=== PATIENT | male | born 1945 | race Caucasian/White ===

== ENCOUNTER 2019-06-23 10:13 | Inpatient (IN) | payer OTHER ==
[~2019-06-23] VITALS: Ht 177.8 cm; Wt 83.2 kg
[2019-06-23] MEDS ORDERED: ondansetron/PF 4mg/2ml inj IV ONE (10:40)
[2019-06-23] MEDS ORDERED: piperacillin/tazo 3.375gm/50ml 50 ML IV ONE (10:40)
[2019-06-23] MEDS ORDERED: morphine 4 MG/ML inj SYRINge IV PRN (10:40)
[2019-06-23] MEDS ORDERED: normal saline 1000ML IV soln IVB ONE (10:40)
[2019-06-23 11:15] LABS: BASOPHILS % (AUTO) 0.2 % (0-1); EOSINOPHILS # (AUTO) 0.2 X10'3 (0-0.9); EOSINOPHILS % (AUTO) 2.5 % (0-6); HEMATOCRIT 46.3 % (42.0-52.0); HEMOGLOBIN 16.3 g/dl (14.0-17.9); LYMPHOCYTES # (AUTO) 1.2 X10'3 (1.1-4.8); LYMPHOCYTES % (AUTO) 14.4 % (21-51); MEAN CORPUSCULAR HEMOGLOBIN 33.6 PG (27.0-31.0); MEAN CORPUSCULAR HGB CONC 35.2 g/dL (33.0-36.5); MEAN CORPUSCULAR VOLUME 95.6 FL (78-98); MEAN PLATELET VOLUME 7.4 FL (7.4-10.4); MONOCYTES # (AUTO) 0.6 X10'3 (0-0.9); MONOCYTES % (AUTO) 6.6 % (2-12); NEUTROPHILS # (AUTO) 6.6 X10'3 (1.8-7.7); NEUTROPHILS % (AUTO) 76.3 % (42-75); PLATELET COUNT 432 X10'3 (140-440); RED BLOOD COUNT 4.85 X10'6 (4.70-6.10); RED CELL DISTRIBUTION WIDTH 13.1 % (11.5-14.5); WHITE BLOOD COUNT 8.6 X10'3 (4.5-11.0)
[2019-06-23 11:22] LABS: ALANINE AMINOTRANSFERASE 36 U/L (12-78); ALBUMIN 3.2 G/DL (3.4-5.0); ALBUMIN/GLOBULIN RATIO 0.6 (1.1-1.5); ALKALINE PHOSPHATASE 113 IU/L (46-116); ANION GAP 12 (8-16); ASPARTATE AMINO TRANSFERASE 22 U/L (10-37); BILIRUBIN,TOTAL 0.4 MG/DL (0.1-1.0); BLOOD UREA NITROGEN 8 MG/DL (7-18); BUN/CREATININE RATIO 7.8 (5.4-32.0); CALCIUM 8.7 MG/DL (8.5-10.1); CHLORIDE 104 MMOL/L (99-107); CREATININE 1.03 MG/DL (0.60-1.10); GLUCOSE 156 MG/DL (70-104); LIPASE 118 U/L (73-393); SODIUM 141 MMOL/L (135-145); TOTAL PROTEIN 8.2 G/DL (6.4-8.2); eGFR 71 ML/MIN
[2019-06-23 11:23] LABS: POTASSIUM 3.9 MMOL/L (3.5-5.1)
[2019-06-23 11:26] LABS: PARTIAL THROMBOPLASTIN TIME 54 SECONDS (22-32)
--- NOTE | 2019-06-23 11:40 | NUR ---
PT REPORTS CURRENTLY NOT HAVING ANY PAIN.
[2019-06-23] MEDS ORDERED: morphine 2 MG/ML inj. syringe IV PRN ×2 (11:50)
[2019-06-23] MEDS ORDERED: ondansetron/PF 4mg/2ml inj IV PRN (11:50)
[2019-06-23] MEDS ORDERED: magnesium 4gm in 100ml NS 100 ML IV PRN (11:50)
[2019-06-23] MEDS ORDERED: acetaminophen 325mg tablet PO PRN (11:50)
[2019-06-23] MEDS ORDERED: potassium Cl 20 mEq SR tablet PO PRN ×2 (11:50)
[2019-06-23] MEDS ORDERED: potassium CL 10mEq/100ml bag 100 ML IV PRN ×2 (11:50)
[2019-06-23] MEDS ORDERED: magnesium 2GM in 50ml NS 50 ML IV PRN (11:50)
[2019-06-23] MEDS ORDERED: mag hydrox/Alum hydrox/simeth 30ml oral suspension PO PRN (11:50)
[2019-06-23] MEDS ORDERED: LISI-642 PO (12:14)
[2019-06-23] MEDS ORDERED: SIMV-45 PO (12:17)
[2019-06-23] MEDS ORDERED: CHOL10002 PO (12:20)
[2019-06-23] MEDS ORDERED: COU5T PO (12:20)
[2019-06-23 12:56] VITALS: BP 142/74
[2019-06-23] MEDS ORDERED: phytonadione inj. 10 MG in normal saline 100ml IV soln 99 ML IV ONE (13:00)
[2019-06-23 13:13] VITALS: BP 149/79
[2019-06-23] MEDS ORDERED: fentaNYL/PF 50MCG/1 ML 2ML syringe IV PRN (13:30)
[2019-06-23] MEDS ORDERED: midazolam 2 mg/2 ml injection IV PRN (13:30)
[2019-06-23] MEDS ORDERED: LIDOcaine 1%/PF 5ML 10 MG/ML VIAL SQ ONE (13:30)
[2019-06-23 13:41] VITALS: BP 147/70
[2019-06-23] MEDS ORDERED: fentaNYL/PF 50MCG/1 ML 2ML syringe ONE (13:42)
[2019-06-23] MEDS ORDERED: midazolam 2 mg/2 ml injection ONE (13:42)
--- NOTE | 2019-06-23 13:51 | NUR ---
US AT BEDSIDE FOR KIDNEY US
[2019-06-23] MEDS: normal saline 1000ml 1,000 ML IV SCH ×2 (16:02→23:35)
[2019-06-23] MEDS: piperacillin/tazo 3.375gm/50ml 50 ML IV SCH ×2 (16:16→23:38)
--- NOTE | 2019-06-23 16:25 | NUR ---
SPOKE WITH IR NURSE RE NEW INR 2.4 WHICH IS IMPROVED FROM 6.1 MD WILL PREFORM PROCEDURE TOMORROW MORNING PT IS NOT TO HAVE WARFARIN TONIGHT
--- NOTE | 2019-06-23 16:37 | NUR ---
promotional table spacer PAGER ID: [phone] MESSAGE: sarahy AMARAL IN ED BED 8 WAITING FOR INPATIENT BED. HIS PROCEDURE HAS BEEN CHANGED TO TOMORROW CAN HE HAVE A DIET ORDERED FOR [facility] [id number]
[2019-06-23 18:30] VITALS: BP 144/72
[2019-06-23] MEDS ORDERED: warfarin 5mg tablet PO ONE (21:00)
[2019-06-23] MEDS: atorvastatin 20mg tablet PO SCH (21:16)
[2019-06-24] VITALS (16 sets, daily range): BP systolic 115–157; BP diastolic 53–86
[2019-06-24 06:06] LABS: BASOPHILS # (AUTO) 0.1 X10'3 (0-0.2); BASOPHILS % (AUTO) 1.3 % (0-1); EOSINOPHILS # (AUTO) 0.2 X10'3 (0-0.9); EOSINOPHILS % (AUTO) 3.4 % (0-6); HEMATOCRIT 40.6 % (42.0-52.0); HEMOGLOBIN 14.1 g/dl (14.0-17.9); LYMPHOCYTES # (AUTO) 1.3 X10'3 (1.1-4.8); LYMPHOCYTES % (AUTO) 18.5 % (21-51); MEAN CORPUSCULAR HEMOGLOBIN 33.5 PG (27.0-31.0); MEAN CORPUSCULAR HGB CONC 34.6 g/dL (33.0-36.5); MEAN CORPUSCULAR VOLUME 96.7 FL (78-98); MEAN PLATELET VOLUME 7.5 FL (7.4-10.4); MONOCYTES # (AUTO) 0.6 X10'3 (0-0.9); NEUTROPHILS % (AUTO) 68.8 % (42-75); PLATELET COUNT 332 X10'3 (140-440); RED CELL DISTRIBUTION WIDTH 12.9 % (11.5-14.5); WHITE BLOOD COUNT 7.2 X10'3 (4.5-11.0)
[2019-06-24 06:30] LABS: ANION GAP 9 (8-16); BILIRUBIN,TOTAL 0.6 MG/DL (0.1-1.0); BLOOD UREA NITROGEN 6 MG/DL (7-18); BUN/CREATININE RATIO 5.7 (5.4-32.0); CHLORIDE 107 MMOL/L (99-107); CREATININE 1.06 MG/DL (0.60-1.10); GLUCOSE 94 MG/DL (70-104); MAGNESIUM 1.7 MG/DL (1.5-2.4); POTASSIUM 3.8 MMOL/L (3.5-5.1); SODIUM 142 MMOL/L (135-145); TOTAL CARBON DIOXIDE 26.5 MMOL/L (24-32); TOTAL PROTEIN 6.6 G/DL (6.4-8.2); eGFR 69 ML/MIN
--- NOTE | 2019-06-24 06:30 | NUR ---
Patient in room [facility]. I have received report from Night RN and had the opportunity to ask questions and assume patient care.
--- NOTE | 2019-06-24 06:30 | NUR ---
Patient in room [facility]. I have received report from GERRI Huston and had the opportunity to ask questions and assume patient care.
[2019-06-24 06:31] LABS: ALANINE AMINOTRANSFERASE 27 U/L (12-78); ALBUMIN 2.6 G/DL (3.4-5.0); ALBUMIN/GLOBULIN RATIO 0.7 (1.1-1.5); ALKALINE PHOSPHATASE 91 IU/L (46-116); ASPARTATE AMINO TRANSFERASE 15 U/L (10-37)
--- NOTE | 2019-06-24 06:31 | NUR ---
Problems reprioritized. Patient report given, questions answered & plan of care reviewed with ANTHONY. Addendum: 06/24/19 at 0631 by Niels Ferguson RN Amended: Links added.
--- NOTE | 2019-06-24 06:35 | NUR ---
Patient in room [facility]. I have received report from GERRI Nguyen and had the opportunity to ask questions and assume patient care.
[2019-06-24] MEDS: K and/or MAG REPLACEMENT MC SCH (07:01)
[2019-06-24] MEDS: normal saline 1000ml 1,000 ML IV SCH ×4 (08:23→20:24)
[2019-06-24] MEDS: piperacillin/tazo 3.375gm/50ml 50 ML IV SCH ×3 (08:24→23:28)
[2019-06-24] MEDS: vitamin D (cholecalciferol) 1,000 unit tablet PO SCH (08:25)
[2019-06-24] MEDS ORDERED: LIDOcaine 1%/PF 5ML 10 MG/ML VIAL SQ ONE (09:20)
[2019-06-24] MEDS ORDERED: fentaNYL/PF 50MCG/1 ML 2ML syringe IV PRN (09:20)
[2019-06-24] MEDS ORDERED: midazolam 2 mg/2 ml injection IV PRN (09:20)
[2019-06-24] MEDS ORDERED: LIDOcaine 1% 30ml preserv. free vial SQ ONE (09:25)
[2019-06-24] MEDS ORDERED: LIDOcaine 1% (10mg/ml) 2ml vial SQ ONE (09:30)
[2019-06-24] MEDS ORDERED: midazolam 2 mg/2 ml injection ONE (09:51)
[2019-06-24] MEDS ORDERED: fentaNYL/PF 50MCG/1 ML 2ML syringe ONE (09:51)
[2019-06-24] MEDS ORDERED: pneumococcal 23-VAL P-sac vacc 25 mcg/0.5ml vial IMVAC ONE (10:00)
[2019-06-24] MEDS: lisinopril 5mg tablet PO SCH (11:24)
--- NOTE | 2019-06-24 11:56 | NUR ---
Problems reprioritized. Patient report given, questions answered & plan of care reviewed with Betzaida TALLEY.
--- NOTE | 2019-06-24 12:00 | NUR ---
Student Medication Administration: For this medication-pass time frame, all medication were reviewed, dispensed, administered and documented per hospital policy by Cielo nursing clinical director.
--- NOTE | 2019-06-24 12:00 | NUR ---
Student documentation: I have reviewed and agree with all interventions, assessments performed and documented by Cielo, nursing care partner.
[2019-06-24] MEDS ORDERED: HYDROcodone/acetaminophen 10/325mg tab PO PRN (13:50)
[2019-06-24] MEDS: HYDROcodone/acetaminophen 5mg/325mg tablet PO PRN (14:22)
--- NOTE | 2019-06-24 18:22 | NUR ---
Problems reprioritized. Patient report given, questions answered & plan of care reviewed with GERRI Curiel.
[2019-06-24] MEDS ORDERED: acetylcysteine oral sol. 200 MG/ML 4ml vial PO SCH (20:00)
[2019-06-24] MEDS: lactobacillus rhamnosus 10,000 MMU CELLS/CAPSULE PO SCH (20:13)
[2019-06-24] MEDS: atorvastatin 20mg tablet PO SCH (20:15)
[2019-06-24] MEDS ORDERED: warfarin 5mg tablet PO ONE (21:00)
[2019-06-25] VITALS: BP 133/58
[2019-06-25] MEDS: HYDROcodone/acetaminophen 5mg/325mg tablet PO PRN (03:04)
[2019-06-25] MEDS: normal saline 1000ml 1,000 ML IV SCH ×3 (03:04→12:58)
[2019-06-25 05:22] LABS: BASOPHILS # (AUTO) 0.1 X10'3 (0-0.2); BASOPHILS % (AUTO) 1.2 % (0-1); EOSINOPHILS # (AUTO) 0.2 X10'3 (0-0.9); EOSINOPHILS % (AUTO) 2.7 % (0-6); HEMATOCRIT 35.9 % (42.0-52.0); HEMOGLOBIN 12.6 g/dl (14.0-17.9); LYMPHOCYTES # (AUTO) 1.1 X10'3 (1.1-4.8); LYMPHOCYTES % (AUTO) 15.1 % (21-51); MEAN CORPUSCULAR HEMOGLOBIN 33.4 PG (27.0-31.0); MEAN CORPUSCULAR VOLUME 95.5 FL (78-98); MEAN PLATELET VOLUME 7.6 FL (7.4-10.4); MONOCYTES # (AUTO) 0.6 X10'3 (0-0.9); MONOCYTES % (AUTO) 8.5 % (2-12); NEUTROPHILS # (AUTO) 5.1 X10'3 (1.8-7.7); NEUTROPHILS % (AUTO) 72.5 % (42-75); PLATELET COUNT 253 X10'3 (140-440); RED BLOOD COUNT 3.76 X10'6 (4.70-6.10); RED CELL DISTRIBUTION WIDTH 13.3 % (11.5-14.5)
[2019-06-25 05:46] LABS: ALANINE AMINOTRANSFERASE 22 U/L (12-78); ALBUMIN 2.2 G/DL (3.4-5.0); ALBUMIN/GLOBULIN RATIO 0.6 (1.1-1.5); ALKALINE PHOSPHATASE 74 IU/L (46-116); ANION GAP 8 (8-16); ASPARTATE AMINO TRANSFERASE 16 U/L (10-37); BILIRUBIN,TOTAL 0.6 MG/DL (0.1-1.0); BLOOD UREA NITROGEN 7 MG/DL (7-18); CHLORIDE 106 MMOL/L (99-107); GLUCOSE 103 MG/DL (70-104); MAGNESIUM 1.7 MG/DL (1.5-2.4); POTASSIUM 3.7 MMOL/L (3.5-5.1); SODIUM 139 MMOL/L (135-145); TOTAL CARBON DIOXIDE 25.1 MMOL/L (24-32); TOTAL PROTEIN 5.8 G/DL (6.4-8.2); eGFR 73 ML/MIN
--- NOTE | 2019-06-25 06:00 | NUR ---
Patient in room [facility]. I have received report from Veena Villanueva RN and had the opportunity to ask questions and assume patient care.
--- NOTE | 2019-06-25 06:01 | NUR ---
Problems reprioritized. Patient report given, questions answered & plan of care reviewed with GERRI Huston.
[2019-06-25 07:00] VITALS: BP 133/66
[2019-06-25] MEDS: K and/or MAG REPLACEMENT MC SCH (07:31)
[2019-06-25] MEDS: lactobacillus rhamnosus 10,000 MMU CELLS/CAPSULE PO SCH ×2 (08:29→20:26)
[2019-06-25] MEDS: lisinopril 5mg tablet PO SCH (08:29)
[2019-06-25] MEDS: piperacillin/tazo 3.375gm/50ml 50 ML IV SCH ×2 (08:30→16:00)
[2019-06-25] MEDS: vitamin D (cholecalciferol) 1,000 unit tablet PO SCH (08:30)
[2019-06-25 11:24] VITALS: BP 143/65
--- NOTE | 2019-06-25 18:05 | NUR ---
Problems reprioritized. Patient report given, questions answered & plan of care reviewed with Maren Villanueva RN.
[2019-06-25 20:00] VITALS: BP 144/65
[2019-06-25] MEDS: atorvastatin 20mg tablet PO SCH (20:26)
[2019-06-25] MEDS ORDERED: warfarin 3mg tablet PO ONE (21:00)
[2019-06-26] VITALS: BP 157/72
[2019-06-26] MEDS: piperacillin/tazo 3.375gm/50ml 50 ML IV SCH ×2 (00:47→08:00)
[2019-06-26] MEDS: normal saline 1000ml 1,000 ML IV SCH (02:30)
[2019-06-26 05:57] LABS: BASOPHILS # (AUTO) 0.1 X10'3 (0-0.2); BASOPHILS % (AUTO) 1.1 % (0-1); EOSINOPHILS # (AUTO) 0.2 X10'3 (0-0.9); EOSINOPHILS % (AUTO) 2.8 % (0-6); HEMATOCRIT 38.8 % (42.0-52.0); HEMOGLOBIN 13.6 g/dl (14.0-17.9); LYMPHOCYTES # (AUTO) 1.3 X10'3 (1.1-4.8); LYMPHOCYTES % (AUTO) 19.4 % (21-51); MEAN CORPUSCULAR HEMOGLOBIN 33.5 PG (27.0-31.0); MEAN CORPUSCULAR VOLUME 95.8 FL (78-98); MEAN PLATELET VOLUME 7.8 FL (7.4-10.4); MONOCYTES # (AUTO) 0.7 X10'3 (0-0.9); MONOCYTES % (AUTO) 10.6 % (2-12); NEUTROPHILS # (AUTO) 4.5 X10'3 (1.8-7.7); NEUTROPHILS % (AUTO) 66.1 % (42-75); PLATELET COUNT 272 X10'3 (140-440); RED BLOOD COUNT 4.04 X10'6 (4.70-6.10); RED CELL DISTRIBUTION WIDTH 13.3 % (11.5-14.5); WHITE BLOOD COUNT 6.8 X10'3 (4.5-11.0)
[2019-06-26 06:11] LABS: ALANINE AMINOTRANSFERASE 23 U/L (12-78); ALBUMIN 2.5 G/DL (3.4-5.0); ALBUMIN/GLOBULIN RATIO 0.6 (1.1-1.5); ALKALINE PHOSPHATASE 77 IU/L (46-116); ANION GAP 10 (8-16); ASPARTATE AMINO TRANSFERASE 16 U/L (10-37); BILIRUBIN,TOTAL 0.4 MG/DL (0.1-1.0); BLOOD UREA NITROGEN 5 MG/DL (7-18); BUN/CREATININE RATIO 5.4 (5.4-32.0); CALCIUM 8.1 MG/DL (8.5-10.1); CHLORIDE 108 MMOL/L (99-107); CREATININE 0.92 MG/DL (0.60-1.10); GLUCOSE 103 MG/DL (70-104); MAGNESIUM 1.8 MG/DL (1.5-2.4); POTASSIUM 3.6 MMOL/L (3.5-5.1); SODIUM 142 MMOL/L (135-145); TOTAL CARBON DIOXIDE 23.8 MMOL/L (24-32); TOTAL PROTEIN 6.4 G/DL (6.4-8.2); eGFR 81 ML/MIN
[2019-06-26 06:15] VITALS: BP 120/70
--- NOTE | 2019-06-26 06:34 | NUR ---
Problems reprioritized. Patient report given, questions answered & plan of care reviewed with GERRI Huston.
--- NOTE | 2019-06-26 06:37 | NUR ---
Patient in room [facility]. I have received report from GERRI Engel and had the opportunity to ask questions and assume patient care.
[2019-06-26 07:00] VITALS: BP 120/70
[2019-06-26] MEDS: lisinopril 5mg tablet PO SCH (07:59)
[2019-06-26] MEDS: vitamin D (cholecalciferol) 1,000 unit tablet PO SCH (07:59)
[2019-06-26] MEDS: lactobacillus rhamnosus 10,000 MMU CELLS/CAPSULE PO SCH (07:59)
[2019-06-26] MEDS: K and/or MAG REPLACEMENT MC SCH (08:00)
[2019-06-26 10:42] VITALS: BP 139/73
[2019-06-26 11:00] VITALS: BP_SYST 120; BP_SYST 139; BP_DIAS 70; BP_DIAS 73
[2019-06-26] MEDS ORDERED: AMOX-580 PO (12:04)
--- NOTE | 2019-06-26 14:00 | NUR ---
Patient discharged home via and taken from unit via wheelchair with x1 staff. Patient PIV removed with cannula intact. Patient alert, oriented and in no apparent distress at time of discharge. Patient took all belongings with him including discharge instructions. Patient stated an understanding of instructions and was given time for questions and answers. [facility] and [facility] copy was placed in the chart. Release of information form was filled out with the patient and placed in the chart to be turned in for processing.
--- NOTE | 2019-06-26 18:31 | NUR ---
Student documentation: I have reviewed all interventions, assessments performed and documented by Roxie BLAND
[2019-06-26] MEDS ORDERED: warfarin 7.5mg tablet PO ONE (21:00)
== END 2019-06-26 14:07 | disposition home or self-care (01) | DRG 372 ==
LOC: ER 10:14 → ED HOLD 12:28 → SUR 3N 18:23
PROVIDERS: ADMIT Family Medicine; ATTEND Family Medicine
PROC: 30233K1 Transfusion of Nonautologous Frozen Plasma into Peripheral Vein, Percutaneous Approach (ICD-10-PCS; 2019-06-23)
PROC: 0W9F30Z Drainage of Abdominal Wall with Drainage Device, Percutaneous Approach (ICD-10-PCS; principal; 2019-06-24)
PROC: 3E0234Z Introduction of Serum, Toxoid and Vaccine into Muscle, Percutaneous Approach (ICD-10-PCS; 2019-06-24)
DX: K35.33 Acute appendicitis with perforation, localized peritonitis, and gangrene, with abscess (principal); D68.61 Antiphospholipid syndrome; E78.5 Hyperlipidemia, unspecified; F17.210 Nicotine dependence, cigarettes, uncomplicated; R00.1 Bradycardia, unspecified; J44.9 Chronic obstructive pulmonary disease, unspecified; Z79.01 Long term (current) use of anticoagulants; Z85.820 Personal history of malignant melanoma of skin; Z86.718 Personal history of other venous thrombosis and embolism; Z23 Encounter for immunization; Z79.899 Other long term (current) drug therapy; Z82.49 Family history of ischemic heart disease and other diseases of the circulatory system; Z71.6 Tobacco abuse counseling
CPT/HCPCS: 36415; 49406; 71045; 80053; 83605; 83690; 83735; 84145; 84484; 85025; 85610; 85730; 86885; 86900; 86901; 87040; 87070; 87077; 87081; 87186; 90732; 93005; 96365; 96375; 99152; 99153; 99285; G0378; J2001; J2250; J2405; J2543; J3010; J3430; J7030; P9059